=== PATIENT | male | born 1985 | race Caucasian/White ===

== ENCOUNTER 2024-07-11 08:47 | Outpatient (CLI) | payer BC, SELFPAY ==
--- NOTE | ~2024-07-11 | MR_ITS ---
MRI of the left ankle Clinical history: Pain Technique: Coronal proton-density and proton-density fat-sat images, axial proton-density and proton- density fat-sat images, and sagittal proton-density and proton-density fat-sat images were acquired. Findings: Syndesmotic ligaments are intact. There is probable thickening and increased signal in the anterior talofibular ligament. Posterior talofibular ligament and calcaneofibular ligament are intact . Deltoid ligament is intact. Medial flexor tendons, peroneal tendons, anterior extensor tendons, and Achilles tendon are intact. There is extensive T1 hypointensity of the talar dome proximal talar neck, suspicious for avascular n ecrosis. There is a probable curvilinear subchondral fracture of the talar dome without miguel articul ar surface collapse. Extensive marrow signal abnormalities are also present throughout the visualized distal tibia, calcaneus, cuboid, navicular, and at the metatarsal bases and cuneiforms, compatible w ith numerous bone infarcts. There is probable moderate degenerative change of the tibiotalar joint wi th tibiotalar joint effusion and moderate subtalar joint effusion. Plantar fascia intact. No distinct soft tissue mass seen. 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 Numerous bone infarcts throughout the remaining visualized osseous structures of the distal tibia and hindfoot/midfoot. Probable mild to moderate degenerative changes tibiotalar joint with tibiotalar and subtalar joint ef fusions. Mild thickening and increased signal of the anterior talofibular, which could reflect sprain. Reviewed, dictated and finalized at location . 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 Numerous bone infarcts throughout the remaining visualized osseous structures o f the distal tibia and hindfoot/midfoot. Probable mild to moderate degenerative changes tibiotalar joint with tibiotalar and subtalar joint effusions. Mild thickening and increased signal of the anterior talofibular, which could r eflect sprain.
--- OUTSIDE RECORDS SUMMARY | 2024-07-11 08:56 | XMS_ITS | Clinical Summary ---
Author Organization [facility] Address [address] [place] [address] Care Team Providers Care Water Fitness Instructor Name Role Phone Matthew Canales MD Primary Care Provider Allergies No known active allergies Medications potassium chloride CR (KLOR-CON M) 20 MEQ tablet Take 1 tablet (20 mEq total) by mouth 2 (two) times daily. 60 tablet 3 Active Additional Information Patient not taking.Reported on 07/08/2024 busPIRone (BUSPAR) 15 MG tablet 5 Active cloNIDine (CATAPRES) 0.1 MG tablet 4 Active FLUoxetine (PROZAC) 40 MG capsule 5 Active ibuprofen (MOTRIN) 800 MG tablet 4 Active pantoprazole EC (PROTONIX) 40 MG tablet 5 Active Pregabalin 300 MG Cap 5 Active QUEtiapine (SEROQUEL) 400 MG tablet 5 Active QUEtiapine (SEROQUEL) 200 MG tablet 5 Active Active Problems Problem Noted Date Diagnosed Date Alcohol withdrawal ([facility]) 08/28/2022 Alcohol abuse 03/30/2022 Lactic acidosis 03/20/2022 Encounters Date Type Department Care Team Description 07/08/2024 2:00 PM CDT - 07/08/2024 11:59 PM CDT Hospital Encounter [facility] Diagnostic Imaging [address] [place] [id number] Gail Duran PA Arrived Discharge Disposition: Home or Self Care (Routine Discharge) 07/08/2024 2:00 PM CDT Office Visit [facility] [address] [facility] [address] [address] [place] [address] Gail Duran PA Knee Pain (BILETERAL); New Patient 07/08/2024 Travel 07/01/2024 10:54 AM CDT - 07/01/2024 11:59 PM CDT Hospital Encounter [facility] [address] [facility] [place] [address] Aaron Sifuentes PA Discharge Disposition: Home or Self Care (Routine Discharge) 07/01/2024 Travel from Last 3 Months Social History Tobacco Use Types Packs/Day Years Used Date Smoking Tobacco: Every Day Cigarettes 0.5 11.9 Started: 08/23/2012 Smokeless Tobacco: Never Tobacco Cessation:Ready to Q uit: Not Asked; Counseling Given: Not Answered Alcohol Use Standard Drinks/Week Comments Not Currently 0 (1 standard drink = 0.6 oz pur e alcohol) Humiliation, Afraid, Rape, and Kick questionnair e Answer Date Recorded Within the last year, have y ou been afraid of your partner or ex-partner? No 09/03/2022 Within the last year, have y ou been humiliated or emotionally abused in other ways by your partner or ex-partner? No Within the last year, have y ou been kicked, hit, slapped, or otherwise physically hurt by your partner or ex-partner? No 09/03/2022 Within the last year, have y ou been raped or forced to have any kind of sexual activity by your partner or ex-partner? No 09/03/2022 Social Connection and Isolat ion Panel [NHANES] Answer Date Recorded In a typical week, how many times do you talk on the phone with family, friends, or neighbors? More than three times a week 09/03/2022 How often do you get togethe r with friends or relatives? More than three times a week 09/03/2022 How often do you attend chur ch or uatsdin services? Never 09/03/2022 Do you belong to any clubs o r organizations such as religion groups, unions, fraternal or athletic groups, or school groups? No 09/03/2022 How often do you attend meet ings of the clubs or organizations you belong to? More than 4 times per year 09/03/2022 Are you , , di vorced, , never , or living with a partner? Patient declined 09/03/2022 AUDIT-C Answer Date Recorded Q1: How often do you have a drink containing alcohol? 4 or more times a week 09/03/2022 Q2: How many drinks containi ng alcohol do you have on a typical day when you are drinking? 7 to 9 Q3: How often do you have si x or more drinks on one occasion? Daily or almost daily 09/03/2022 Overall Financial Resource Strain (CARDIA) Answe r Date Recorded How hard is it for you to pa y for the very basics like food, housing, medical care, and heating? Not hard at all 09/03/2022 [facility] - Occupational Stress Questionnaire Answer Date Recorded Do you feel stress - tense, restless, nervous, or anxious, or unable to sleep at night because your mind is troubled all the time - these days? Very much 09/03/2022 Hunger Vital Sign Answer Date Recorded Within the past 12 months, y ou worried that your food would run out before you got the money to buy more. Never true 09/04/19 23 Within the past 12 months, t he food you bought just didn't last and you didn't have money to get more. Never true 09/03/2022 PRAPARE - Transportation Answer Date Re corded In the past 12 months, has l ack of transportation kept you from medical appointments or from getting medications? No 08/23 In the past 12 months, has l ack of transportation kept you from meetings, work, or from getting things needed for daily living? No 09/03/2022 Housing Stability Vital Sign Answer Freddie e Recorded In the last 12 months, was t here a time when you were not able to pay the mortgage or rent on time? No 09/03/2022 In the last 12 months, how many places have you lived? 1 09/03/2022 In the last 12 months, was t here a time when you did not have a steady place to sleep or slept in a group home (including now)? No 09/03/2022 Sex and Gender Information Value Date Recorded Sex Assigned at Male 07/01/2024 10:51 AM CDT Legal Sex Male 4:33 PM CDT Gender Identity Not on file Sexual Orientation Not on file Last Filed Vital Signs Vital Sign Reading Time Taken Comments Blood Pressure 118/79 09/29/2022 5:00 AM CDT Pulse 71 09/29/2022 5:00 AM CDT Temperature 37.4 C (99.4 F) 09/28/2022 7:30 PM CDT Respiratory Rate 16 09/29/2022 5:00 AM CDT Oxygen Saturation 95% 09/29/2022 5:00 AM CDT Inhaled Oxygen Concentration - - Weight 83.5 kg (184 lb) 07/08/2024 1:44 PM CDT Height 177.8 cm (5' 10 ) 07/08/2024 1:44 PM CDT Body Mass Index 26.4 07/08/2024 1:44 PM CDT Plan of Treatment Upcoming Encounters Date Type Department Care Team (Late st Contact Info) Description 07/14/2024 1:00 PM CDT Appointment [place] [id number] [facility] [place] [address] Gail Duran PA [address] [place] [id number] 07/20/2024 12:15 PM CDT Office Visit [facility] [address] [place] [address], [facility] [address] [place] [address] Gal George Jr., DO [address] [place] [address] Health Maintenance Due Date Last Done Comments Annual Physical 1988 Pneumococcal Vaccine: Pediatrics (0 to 5 Years) and At-Risk Patients (6 to 49 Years) (1 of 2 - PCV) 2004 COVID-19 Vaccine (1 - season) 2023 DTaP, Tdap and Td Vaccines (8 - Td or Tdap) 08/26/2033 08/27/2023, 09/12/2021, 05/15/2013, Additional history exists Hepatitis B Vaccines Completed 08/31/1997, 03/16/1997, 02/03/1997 Hepatitis C Completed 08/28/2022, 08/2022, 03/20/2022 HPV Vaccines Aged Out No longer eligi ble based on patient's age to complete this topic Meningococcal B Vaccine Aged Out No l onger eligible based on patient's age to complete this topic Meningococcal Vaccine Aged Out No david doretha eligible based on patient's age to complete this topic RSV Immunizations Under 20 Months Aged Out No longer eligible based on patient's age to complete this topic Goals Goal Patient Goal Type Associated Problems Recent Progress Patient-Stated? 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 Ordered By: GAIL DURAN Interpreted By: Daniel Cruz MD, 07/09/2024 10:17 AM Narrative 07/09/2024 10:19 AM CDT [address] [place] [address] Examination: Right knee. Exam time: 1309 hours. Clinical history: Fracture follow-up. Comparison: 07/01/2024. Technique: Whipholt and weightbearing AP and lateral views. Findings: Mildly displaced and comminuted medial tibial plateau fracture is again evident with overall stable appearance allowing for minor differences in projection. No new fracture is identified. Small joint effusion persists. No other significant bone or joint abnormality is noted. Procedure Note Daniel Cruz MD - 07/09/[address] [place] [address] Examination: Right knee. Exam time: 1309 hours. Clinical history: Fracture follow-up. Comparison: 07/01/2024. Technique: Whipholt and weightbearing AP and lateral views. Findings: Mildly displaced and comminuted medial tibial plateau fractureis again evident with overall stable appearance allowing for minordifferences in projection. No new fracture is identified. Small jointeffusion persists. No other significant bone or joint abnormality isnoted. IMPRESSION: Stable exam. Ordered By: GAIL DURAN Interpreted By: Daniel Cruz MD, 07/09/2024 10:17 AM us Gail XIE GENERAL IMAGING Final Result * XR ANKLE LT M3V (07/01/2024 11:18 AM CDT) Anatomical Region Laterality Modality Ankle Radiographic Caro ging 07/02/2024 8:11 AM CDT Impressions 07/02/2024 8:18 AM CDT IMPRESSION: 1. No acute osseous abnormality is identified. 2. Irregularity and slight depression of the talar dome with subcortical lucency. Findings may be sequelae of previous injury or possible AVN. 3. Probable ankle joint effusion with scattered calcifications, which could be loose bodies. 4. Further assessment with left ankle MRI may be beneficial. Ordered By: AARON SIFUENTES Interpreted By: Damion Hazel MD, 07/02/2024 8:11 AM Narrative 07/02/2024 8:18 AM CDT [facility] [address] [place] [address] Examination: XR ANKLE LT M3V Exam time: 07/01/2024 11:10 AM Clinical history: Left ankle pain. Comparison: No comparison. Technique: 3 views of the left ankle. Findings: No acute fracture or dislocation is seen. The ankle mortise is preserved. There is irregularity and slight depression of the talar dome on AP and oblique views with subcortical lucency. Findings may be sequelae of previous injury or possible AVN. Probable ankle joint effusion with scattered calcifications, which could be loose bodies. There is mild soft tissue edema about the ankle. Procedure Note Damion Hazel MD - 07/02/[address] [place] [address] Examination: XR ANKLE LT M3V Exam time: 07/01/2024 11:10 AM Clinical history: Left ankle pain. Comparison: No comparison. Technique: 3 views of the left ankle. Findings: No acute fracture or dislocation is seen. The ankle mortise is preserved.There is irregularity and slight depression of the talar dome on AP andoblique views with subcortical lucency. Findings may be sequelae ofprevious injury or possible AVN. Probable ankle joint effusion withscattered calcifications, which could be loose bodies. There is mild softtissue edema about the ankle. IMPRESSION: 1. No acute osseous abnormality is identified. 2. Irregularity and slight depression of the talar dome with subcorticallucency. Findings may be sequelae of previous injury or possible AVN. 3. Probable ankle joint effusion with scattered calcifications, whichcould be loose bodies. 4. Further assessment with left ankle MRI may be beneficial. Ordered By: AARON SIFUENTES Interpreted By: Damion Hazel MD, 07/02/2024 8:11 AM us Aaron Sifuentes PA GENERAL IMAGING Final Resu lt * XR KNEE JASMINE 3V (07/01/2024 11:16 AM CDT) Anatomical Region Laterality Modality Knee Radiographic Caro ging 07/02/2024 8:18 AM CDT Impressions 07/02/2024 8:21 AM CDT IMPRESSION: 1. Slightly displaced medial tibial plateau fracture extending to the metaphysis. The acuity of this fracture is uncertain although the history given by the performing technologist states there is a history of prior knee fracture. Subtle osseous bridging is seen at the fracture site suggesting healing and a subacute process. 2. Small to moderate size right knee joint effusion. Ordered By: MATTHEW CANALES Interpreted By: Damion Hazel MD, 07/02/2024 8:18 AM Narrative 07/02/2024 8:21 AM CDT [address] [place] [address] Examination: XR KNEE JASMINE 3V Exam time: 07/01/2024 11:08 AM Clinical history: Bilateral knee pain, worse on the right. Technologist notes state history of previous right knee fracture. Comparison: Right knee radiographs March 20, 2023. Technique: 3 views of both knees. Findings: Right: There is a slightly displaced medial tibial plateau fracture extending to the metaphysis. The acuity of this fracture is uncertain although the history given by the performing technologist states there is a history of prior knee fracture. Subtle osseous bridging is seen at the fracture site suggesting healing and a subacute process. No definite new acute fracture is seen involving the right knee. Joint spaces are preserved. There is a nasnb-qj-uuguezej size right knee joint effusion. Left: No fracture or dislocation. Joint spaces are preserved. No destructive bone process is seen. No sizable joint effusion. No soft tissue abnormality noted. Procedure Note Damion Hazel MD - 07/02/[address] [place] [address] Examination: XR KNEE JASMINE 3V Exam time: 07/01/2024 11:08 AM Clinical history: Bilateral knee pain, worse on the right. Technologistnotes state history of previous right knee fracture. Comparison: Right knee radiographs March 20, 2023. Technique: 3 views of both knees. Findings: Right: There is a slightly displaced medial tibial plateau fractureextending to the metaphysis. The acuity of this fracture is uncertainalthough the history given by the performing technologist states there nate history of prior knee fracture. Subtle osseous bridging is seen at thefracture site suggesting healing and a subacute process. No definite newacute fracture is seen involving the right knee. Joint spaces arepreserved. There is a otwbk-qa-wgiijhpy size right knee joint effusion. Left: No fracture or dislocation. Joint spaces are preserved. Nodestructive bone process is seen. No sizable joint effusion. No softtissue abnormality noted. IMPRESSION: 1. Slightly displaced medial tibial plateau fracture extending to themetaphysis. The acuity of this fracture is uncertain although the historygiven by the performing technologist states there is a history of priorknee fracture. Subtle osseous bridging is seen at the fracture sitesuggesting healing and a subacute process. 2. Small to moderate size right knee joint effusion. Ordered By: MATTHEW CANALES Interpreted By: Damion Hazel MD, 07/02/2024 8:18 AM us Matthew Canales MD GENERAL IMAGING Final Resul t * HEPATITIS PANEL,ACUTE (08/28/2022 5:45 PM CDT) HEPATITIS B SURFACE AG NON-REACT BHARGAV NON-REACT BHARGAV 08/28/2022 7:48 PM CDT [facility] Comment:HBsAg NOT DETECTED. HEP B CORE IGM NON-REACT BHARGAV NON-REACT BHARGAV 08/28/2022 7:48 PM CDT [facility] Comment: IgM ANTI HBc NOT DETECTED. DOES NOT EXCLUDE THE POSSIBILITY OF EXPOSURE TO OR INFECTION WITH HBV. NO RETEST REQUIRED. HIGH DOSES OF BIOTIN MAY INTERFERE WITH THIS TEST RESULT. CORRELATION TO CLINICAL HISTORY AND PRESENTATION RECOMMENDED. HAV IGM NON-REACT BHARGAV NON-REACT BHARGAV 08/28/2022 7:48 PM CDT [facility] Comment: IgM ANTI HAV NOT DETECTED. DOES NOT EXCLUDE THE POSSIBILITY OF EXPOSURE TO OR INFECTION WITH HAV. LEVELS OF IgM ANTI HAV MAY BE BELOW THE CUTOFF IN EARLY INFECTION. HEPATITIS C AB NON-REACT BHARGAV NON-REACT BHARGAV 08/28/2022 7:48 PM CDT [facility] Comment: ANTIBODIES TO HCV NOT DETECTED. DOES NOT EXCLUDE THE POSSIBILITY OF EXPOSURE TO HCV. 08/28/2022 5:45 PM CDT Felton Yan MD LABORATORY Final Result [facility] [address] [place] [address], [id number] from Last 3 Months or Most Recently Relevant to Health Maintenance Insurance [facility] Advance Directives * Full Code (Latest Code Status on File) Date Activated Date Inactivated Comments 03/30/2022 8:00 PM 04/02/2022 2:26 PM * Full Code Date Activated Date Inactivated Comments 03/20/2022 1:29 AM 03/21/2022 5:28 PM Care Teams Water Fitness Instructor Relationship Specialty Start Date End Date Matthew Canales MD [address] [place] [phone] PCP - General FAMILY PRACTICE 03/12/22
--- OUTSIDE RECORDS SUMMARY | 2024-07-11 08:56 | XMS_ITS | Encounter Summary ---
Author Organization [facility] Address [address] [place] [address] Care Team Providers Care Hospitalist Medical Director Name Role Phone Matthew Canales MD Primary Care Provider [phone] Encounter Details Date Type Department Care Team (Late st Contact Info) Description 03/27/2022 Hospital Follow-up Call [facility] [address] [place] [address] Vidhi Bardales RN Social History Tobacco Use Types Packs/Day Years Used Date Smoking Tobacco: Never Assessed Hunger Vital Sign Answer Date Recorded Within the past 12 months, y ou worried that your food would run out before you got the money to buy more. Never true 03/31/19 23 Within the past 12 months, t he food you bought just didn't last and you didn't have money to get more. Never true 03/31/2022 Sex and Gender Information Value Date Recorded Sex Assigned at Male 07/01/2024 10:51 AM CDT Legal Sex Male 4:33 PM CDT Gender Identity Not on file Sexual Orientation Not on file COVID-19 Exposure Response Date Recorded In the last 10 days, have yo u been in contact with someone who was confirmed or suspected to have Coronavirus/COVID-19? No / Unsure 03/30/2022 2:51 PM ENTRY LEVEL MANUFACTURING ENGINEER documented as of this encounter Functional Status * RETIRED Are you deaf or do you have serious difficulty hearing Answer Date of Assessment Author Status No 03/20/2022 1:35 AM ENTRY LEVEL MANUFACTURING ENGINEER Activ e * RETIRED Are you blind or do you have serious difficulty seeing, even when wearing glasses? Answer Date of Assessment Author Status No 03/20/2022 1:35 AM ENTRY LEVEL MANUFACTURING ENGINEER Activ e * Do you have difficulty dressing or bathing? Answer Date of Assessment Author Status No 03/20/2022 1:35 AM Julian Hoffman RN Active * Because of a physical, mental, or emotional condition, do you have difficulty doing errands alone such as visiting a doctor's office or shopping? Answer Date of Assessment Author Status No 03/20/2022 1:35 AM Julian Hoffman RN Active * Calculated C-SSRS Risk Score (Lifetime/Recent) Answer Date of Assessment Author Status No Risk Indicated 03/30/2022 2:52 PM Mariposa Huerta RN Active * Freeborn Suicide Severity Rating Scale (Screener/Recent Self-Report) Question Answer Date of Assessment Author Status 1. Wish to be (Past 1 Month) No 03/30/2022 2:52 PM Mariposa Huerta RN Activ e 2. Non-Specific Active Suicidal Thoughts (Past 1 Month) No 03/30/2022 2:52 PM Mariposa Huerta RN Activ e 6. Suicidal Behavior (Lifetime) No 03/30/2022 2:52 PM Mariposa Huerta RN Activ e documented as of this encounter Mental Status * Because of a physical, mental, or emotional condition, do you have serious difficulty concentrating, remembering, or making decisions? Answer Entry Date Author Status No 03/20/2022 1:35 AM Julian Hoffman RN Active documented in this encounter Plan of Treatment Upcoming Encounters Date Type Department Care Team (Late [facility] Info) Description 07/14/2024 1:00 PM CDT Appointment [address] [place] [address] Iona Garnica PA [address] [place] [phone] 07/20/2024 12:15 PM CDT Office Visit [facility] [address] [place] [address] [address] [place] [address] Gal George Jr., DO [address] [place] [address] documented as of this encounter Goals Goal Patient Goal Type Associated Problems Recent Progress Patient-Stated? Author Safety Patient/family will have appropriate support at home upon discharge Lifestyle No Diana Bowers RN documented as of this encounter Visit Diagnoses Not on filedocumented in this encounter Additional Health Concerns Infection Onset Date Last Indicated Resolved Time COVID-19 Rule Out 03/30/2022 03/30/2022 03/30/2022 9:28 PM ENTRY LEVEL MANUFACTURING ENGINEER documented as of this encounter Care Teams Hospitalist Medical Director Relationship Specialty Start Date End Date Matthew Canales MD [address] [place] [phone] PCP - General FAMILY PRACTICE 03/12/22 documented as of this encounter
== END 2024-07-11 08:48 | disposition home or self-care (01) ==
LOC: CHSIMG 08:54
PROVIDERS: PCP Family Medicine
DX: R93.6 Abnormal findings on diagnostic imaging of limbs (principal); M89.9 Disorder of bone, unspecified
CPT/HCPCS: 73721